=== PATIENT | female | born 1990 | race Two or more races ===

== ENCOUNTER 2024-02-24 12:25 | Emergency (ER) | payer OTHER ==
[~2024-02-24] VITALS: Ht 170.2 cm; Wt 96.2 kg
[2024-02-24 12:37] VITALS: BP 133/77; O2SAT 97
[2024-02-24] MEDS ORDERED: KETOROLAC TROMETHAMINE 30 MG VIAL IM STA (13:57)
== END 2024-02-24 16:31 | disposition home or self-care (01) ==
LOC: ER 12:27
DX: M25.562 Pain in left knee (principal)

== ENCOUNTER 2024-03-04 10:01 | Outpatient (CLI) | payer OTHER ==
[2024-03-04 10:54] LABS: URINE APPEARANCE Clear; URINE BILIRRUBIN Negative (NEGATIVE); URINE BLOOD Negative; URINE COLOR Yellow; URINE GLUCOSE Negative (NEGATIVE); URINE KETONE Negative (NEGATIVE); URINE LEUKOCYTE Negative; URINE NITRATE Negative; URINE PROTEIN Negative (NEGATIVE); URINE UROBILINOGEN 0.2 E.U./dl
[2024-03-04 10:55] LABS: HEMATOCRIT 39.8 % (36.0-45.00); HEMOGLOBIN 13.2 g/dL (12.0-15.00); MEAN CELL VOLUME 92.9 fL (80.00-100.00); MEAN CORPUSCULAR HEMOGLOBIN 30.9 pg (27.00-32.0); MEAN CORPUSCULAR HGB CONC 33.2 g/dl (32.0-36.0); PLATELET COUNT 265 K/uL (150-450); RED BLOOD COUNT 4.29 M/uL (4.00-6.00); RED CELL DISTRIBUTION WIDTH 12.9 % (11.5-14.5)
[2024-03-04 10:55] LABS: URINE BACTERIA 67.9 uL (0.0-1933)
[2024-03-04 11:16] LABS: INR 1.01; PARTIAL THROMBOPLASTIN TIME 27.9 SECONDS (22.0-34.0)
[2024-03-04 11:17] LABS: URINE WBC 1.5 uL (0.0-23.2)
[2024-03-04 11:33] LABS: ALBUMIN 3.9 gm/dL (3.4-5.0); BILIRUBIN TOTAL 0.53 mg/dL (0.3-1.2); CALCIUM 9.6 mg/dL (8.5-10.1); CREATININE SERUM 0.71 mg/dL (0.55-1.02); GFR 94.8; GLOBULINA 3.7 G/DL (2.4-3.5); POTASSIUM 4.29 mEq/L (3.5-5.1); TOTAL PROTEIN 7.6 gm/dL (6.4-8.2)
== END 2024-03-04 10:03 | disposition home or self-care (01) ==
LOC: RAD 10:01
PROVIDERS: ATTEND Orthopaedic Surgery
DX: D64.9 Anemia, unspecified (principal); E88.89 Other specified metabolic disorders; D68.8 Other specified coagulation defects; N39.0 Urinary tract infection, site not specified; Z22.322 Carrier or suspected carrier of Methicillin resistant Staphylococcus aureus; E11.9 Type 2 diabetes mellitus without complications; I10 Essential (primary) hypertension; Z76.89 Persons encountering health services in other specified circumstances

== ENCOUNTER → 2024-03-14 | Day surgery (SDC) | payer OTHER ==
[~2024-03-14] MED LIST: BUPIVACAINE HCL 30 ML VIAL IJ ONE; CEFAZOLIN SODIUM 1,000 MG VIAL IV SCH; MORPHINE SULFATE 4 MG/ML VIAL IV ONE
== END | disposition home or self-care (01) ==
LOC: CIR.AMB 10:38
PROVIDERS: ATTEND Orthopaedic Surgery
DX: S76.192A Other specified injury of left quadriceps muscle, fascia and tendon, initial encounter (principal); M17.12 Unilateral primary osteoarthritis, left knee; M67.862 Other specified disorders of synovium, left knee; S83.282A Other tear of lateral meniscus, current injury, left knee, initial encounter

== ENCOUNTER 2024-09-22 20:07 | Emergency (ER) | payer OTHER ==
[~2024-09-22] VITALS: Ht 170.2 cm; Wt 100.7 kg
[2024-09-22 23:36] LABS: BASO % 0.3 % (0.1-1.2); EOS # 0.14 (0.04-0.54); EOS % 1.2 % (0.7-7.0); HEMATOCRIT 36.8 % (34.1-44.9); HEMOGLOBIN 12.6 g/dL (11.2-15.7); LYMPH # 3.87 (1.18-3.74); LYMPH % 34.2 % (19.3-53.1); MONO # 0.65 (0.24-0.82); MONO % 5.7 % (4.7-12.5); NEUT # 6.58 (1.56-6.13); NEUT % 58.2 % (34.0-71.1); PLATELET COUNT 238 K/uL (163-369); RED BLOOD COUNT 4.06 M/uL (3.93-5.22)
[2024-09-23] LABS: COVID-19 AG NEGATIVE (NEGATIVE)
[2024-09-23 00:02] LABS: INFLUENZA A AG NEGATIVE (NEGATIVE); INFLUENZA B AG NEGATIVE (NEGATIVE)
[2024-09-23] MEDS ORDERED: ACETAMINOPHEN500 M1 PO (00:07)
[2024-09-23] MEDS ORDERED: GILTUSS COUGH-118 M1 PO (00:07)
[2024-09-23] MEDS ORDERED: ZITHROMAX TRI-500 MG PO (00:07)
== END 2024-09-23 00:28 | disposition home or self-care (01) ==
LOC: ER 20:11
PROVIDERS: Preventive Medicine Public Health & General Preventive Medicine
DX: J06.9 Acute upper respiratory infection, unspecified (principal); Z20.822 Contact with and (suspected) exposure to COVID-19